=== PATIENT | female | born 1985 | race African-American/Black ===

== ENCOUNTER 2021-01-10 13:22 | Emergency (ER) | payer OTHER, SELFPAY ==
--- NOTE | ~2021-01-10 | CT_ITS ---
EXAMINATION: CT abdomen pelvis w con EXAM DATE: 01/10/2021 15:14 INDICATION: Right lower quadrant pain. TECHNIQUE: Spiral CT of the abdomen and pelvis was performed following intravenous injection of 100 m L Omnipaque 350. Axial, coronal and sagittal images of the abdomen and pelvis were reviewed. The do se-length product (DLP) for this examination was 318.02 mGy-cm. The exposure was tailored according to patient size (auto mA exposure control), and iterative reconstruction (ASIR) was used as additiona l dose reduction technique. There is no prior study for comparison. FINDINGS: The liver, spleen, adrenal glands and pancreas are unremarkable. Gallbladder is unremarkab le. No biliary obstruction. Portal and splenic veins are patent. Kidneys enhance symmetrically. T here is no hydronephrosis. Calcifications in the pelvis are believed to be phleboliths. There is IU D which appears to be centrally located within the endometrium, expected position. The bladder is un remarkable. There is no retroperitoneal or pelvic lymphadenopathy. Small umbilical and periumbilic al fat-containing hernias. The appendix is normal. The stomach and small bowel are unremarkable. There is expected amount of c olonic stool. No free intraperitoneal gas. The heart is normal in size. There are no pericardial or pleural effusions. The lung bases are unremarkable. The bones are unremarkable. IMPRESSION: 1. No acute intra-abdominal findings. Reviewed, dictated and finalized at location A.
[2021-01-10 13:48] VITALS: BP 139/89; PULSE 85; RESP 17; TEMP 36.3; O2SAT 100
--- NOTE | 2021-01-10 13:52 | ECG_ITS ---
Measurements Intervals [place] Rate: 90 P: 55 ID: 144 QRS: 48 QRSD: 81 T: 45 QT: 349 QTc: 427 Interpretive Statements SINUS RHYTHM WITH SINUS ARRHYTHMIA NORMAL ECG Electronically Signed On 01-10-2021 14:54:43 CDT by Bernabe Sue D.O.
[2021-01-10 14:03] LABS: Basophils Absolute Auto 0.1 K/mm3 (0.0-0.1); Eosinophils Absolute Auto 0.4 K/mm3 (0-0.3); Eosinophils Percent Auto 8.4 % (0-4.4); Hematocrit 38.8 % (37.0-47.0); Hemoglobin 12.6 g/dL (12.0-15.0); Immature Granulocyte Absolute 0.02 K/mm3 (0.00-0.031); Immature Granulocyte Percent A 0.4 % (0-0.5); Lymphocytes Absolute Auto 1.59 K/mm3 (0.9-3.2); Lymphocytes Percent Auto 30.5 % (18.3-44.2); Mean Corpuscular HGB Conc 32.5 g/dl (32-36); Mean Corpuscular Hemoglobin 30.6 pg (26-34); Mean Corpuscular Volume 94.2 fl (80-100); Monocytes Absolute Auto 0.5 K/mm3 (0.1-0.6); Monocytes Percent Auto 8.6 % (2.6-8.5); Neutrophils Absolute Auto 2.7 K/mm3 (1.3-6.7); Neutrophils Percent Auto 51.1 % (45.5-73.1); Platelet Count Result 247 k/mm3 (150-375); Red Blood Count 4.12 M/mm3 (4.2-5.4); Red Cell Distribution Width 12.9 % (11.5-14.5); White Blood Count 5.2 K/mm3 (4.5-10.0)
[2021-01-10 14:10] LABS: Alanine Aminotransferase 13 U/L (4-35); Albumin Level 4.4 g/dL (3.5-5.1); Alkaline Phosphatase 42 U/L (38-126); Anion Gap 5 mmol/L (8-16); Aspartate Amino Transferase 26 U/L (14-36); Bilirubin,Total 0.1 mg/dL (0.2-1.3); Blood Urea Nitrogen 17 mg/dL (7-17); Calcium 9.2 mg/dL (8.4-10.2); Carbon Dioxide 29 mmol/L (22-30); Chloride 106 mmol/L (98-107); Estimated CRCL calculation 77 ml/min; Estimated Glomerular Filt Rate > 60; Glucose 93 mg/dL (65-105); Lipase 124 U/L (23-300); Potassium 4.1 mmol/L (3.4-5.0); Sodium 140 mmol/L (137-145)
--- NOTE | 2021-01-10 14:33 | ED.ABDPAIN ---
HPI - Abdominal Pain General Chief Complaint: Abdominal Pain Stated Complaint: Dr sent in Time Seen by Provider: 01/10/21 14:22 Source: patient Mode of arrival: ambulatory Limitations: no limitations History of Present Illness HPI narrative: Epigastric pain intermittently for the past several days. Feels like squeezing. Radiates into chest. Lasts for variable lengths of time. Nothing seems to make it better or worse. Tried ibuprofen without relief. She also has been having daiily headaches. Moderate severity. Feels like previous migraines. Associated with mild nausea. Related Data Home Medications Medication Instructions Recorded Confirmed lisinopril 01/10/21 Allergies Allergy/AdvReac Type Severity Reaction Status Date / Time morphine Allergy Mild Unknown Unverified 01/10/21 14:45 Review of Systems Review of Systems: All systems reviewed & are unremarkable except as noted in HPI and below Constitutional: Constitutional: Denies chills, Denies fever(s) and Denies weakness Eyes: Eyes: Reports no additional eye complaints ENT: Reports system reviewed and no additional complaints, except as documented Cardiovascular: Cardiovascular: Denies chest pain Respiratory: Respiratory: Denies dyspnea Gastrointestinal: Gastrointestinal: Reports as per HPI Genitourinary: Genitourinary: Denies hematuria and Denies dysuria Musculoskeletal: Musculoskeletal: Denies back pain Neurologic: Reports system reviewed and no additional complaints, except as documented [facility] Past Medical History Medical History (Updated 01/10/21 @ 16:12 by Jose Chino MD) HTN (hypertension) Migraine Social History Social History Gender identity (if verbalized by the patient): Female Exam Const: General: healthy appearing, no acute distress and alert Orientation/consciousness: patient oriented x3 HENMT: Head: normal to inspection Neck: Neck: normal visual inspection Resp: Effort & Inspection: normal respiratory effort Auscultation: clear to auscultation bilaterally, no rales, no rhonchi and no wheezes Cardio: Jugular venous distension: no JVD Rate: regular rate Rhythm: regular rhythm Heart sounds: no murmurs GI: Inspection: non-distended GI Palp: Yes Soft to palpation, Yes Tenderness to palpation present (GI) (epigastric), No Guarding due to palpation present (GI) and No Rebound tenderness present Skin: General skin exam: normal color Neuro: General: patient oriented x3, moves all extremities, no focal motor deficits and CN's II-XI intact bilaterally Speech: normal speech Gait exam (Neuro): Normal gait present Extrem: General: normal to inspection and no edema Psych: Appearance: well kempt Affect: normal affect Course Vital Signs Vital signs: Vital Signs Temperature 36.3 C L 01/10/21 13:48 Pulse Rate 85 01/10/21 13:48 Respiratory Rate 17 01/10/21 13:48 Blood Pressure 139/89 01/10/21 13:48 Pulse Oximetry 100 01/10/21 13:48 Temperature 36.3 C L 01/10/21 13:48 Pulse Rate 85 01/10/21 13:48 Respiratory Rate 17 01/10/21 13:48 Blood Pressure 139/89 01/10/21 13:48 Pulse Oximetry 100 01/10/21 13:48 MDM - Abdominal Pain Differential Diagnosis Differential diagnosis: Likely constipation, pancreatitis and other (cholecystitis, PUD, gastritis) Medical Records Attestation: I reviewed the patient's medical records. Lab Data Attestation: I reviewed the patient's lab results. Result diagrams: 01/10/21 13:53 01/10/21 13:53 Labs: Lab Results 01/10/21 01/10/21 01/10/21 Range/Units 13:53 13:53 15:05 WBC 5.2 (4.5-10.0) K/mm3 RBC 4.12 L (4.2-5.4) M/mm3 Hgb 12.6 (12.0-15.0) g/dL Hct 38.8 (37.0-47.0) % MCV 94.2 (80-100) fl MCH 30.6 (26-34) pg MCHC 32.5 (32-36) g/dl RDW 12.9 (11.5-14.5) % Plt Count 247 (150-375) k/mm3 MPV 10.0 (7.4-10.4) fl Immature Gran % (Auto) 0.4 (0-0.5) % Neut % (Auto)
--- NOTE | 2021-01-10 15:05 | PC.NURSE ---
Pt to CT at this time.
[2021-01-10 15:17] LABS: Add Urine Microscopic? YES; Appearance Urine Clear (Clear); Bilirubin Urine Negative (Negative); Blood Urine Negative (Negative); Color Urine Yellow (Yellow); Glucose Urine UA Negative (Negative); Ketones Urine Negative (Negative); Leukocyte Esterase Ur Negative LEU/UL (Negative); Mucus Urine Few /lpf; Nitrate Urine Negative (Negative); Protein Urine 1+ mg/dL (Negative); RBC Urine 0-2 /hpf (0-2); Squamous Epithelial Cell Urine Few /hpf (Few); Urobilinogen Urine Negative mg/dL (<2.0); WBC Urine 0-3 /hpf
[2021-01-10] MEDS: SODIUM CHLORIDE 0.9% IV 1,000 ML 999 ML IV CONT (15:27)
[2021-01-10] MEDS: METOCLOPRAMIDE HCL INJ 10 MG/2 ML VIAL IV PUSH (15:28)
[2021-01-10 15:34] VITALS: BP 111/59; O2SAT 99
[2021-01-10 16:15] VITALS: BP 112/43; PULSE 96; RESP 16; O2SAT 99
== END 2021-01-10 16:15 | disposition home or self-care (01) ==
PROVIDERS: Emergency Provider Emergency Medicine
DX: R10.13 Epigastric pain (principal); G43.909 Migraine, unspecified, not intractable, without status migrainosus; I10 Essential (primary) hypertension
CPT/HCPCS: 36415; 74177; 80053; 81001; 81025; 83690; 85025; 93005; 96365; 96375; 99284; J0131; J2765; J7030; Q9967

== ENCOUNTER 2021-10-13 20:08 | Emergency (ER) | payer OTHER, SELFPAY ==
--- NOTE | ~2021-10-13 | XR_ITS ---
XR chest 2V DATE: 10/13/2021 21:30 INDICATION: Midsternal chest pain radiating to left side. Shortness of breath for 1.5 weeks. TECHNIQUE: PA and lateral views COMPARISON: 07/30/2015 2 view chest FINDINGS: Normal heart size. No hilar or mediastinal enlargement. No pulmonary infiltrate or consolid ation, pleural effusion or pulmonary vascular congestion or pneumothorax. IMPRESSION: No active cardiopulmonary disease Reviewed, dictated and finalized at location A. ICAL TECH
--- NOTE | 2021-10-13 21:00 | ECG_ITS ---
Measurements Intervals [place] Rate: 72 P: 140 AR: 156 QRS: 143 QRSD: 84 T: 149 QT: 354 QTc: 388 Interpretive Statements SINUS OR ECTOPIC ATRIAL RHYTHM LIMB LEAD REVERSAL ATYPICAL ECG Electronically Signed On 10-14-2021 7:51:20 [employer] by Bernabe Sue D.O.
[2021-10-13 21:02] VITALS: BP 128/81; PULSE 74; RESP 18; TEMP 36.8; O2SAT 100
[2021-10-13 23:22] LABS: Basophils Percent Auto 0.7 % (0.2-1.2); Eosinophils Absolute Auto 0.3 K/mm3 (0-0.3); Eosinophils Percent Auto 5.4 % (0-4.4); Hematocrit 36.3 % (37.0-47.0); Hemoglobin 12.1 g/dL (12.0-15.0); Immature Granulocyte Absolute 0.01 K/mm3 (0.00-0.031); Immature Granulocyte Percent A 0.2 % (0-0.5); Lymphocytes Absolute Auto 1.96 K/mm3 (0.9-3.2); Lymphocytes Percent Auto 36.5 % (18.3-44.2); Mean Corpuscular HGB Conc 33.3 g/dl (32-36); Mean Corpuscular Hemoglobin 31.6 pg (26-34); Mean Corpuscular Volume 94.8 fl (80-100); Mean Platelet Volume 10.4 fl (7.4-10.4); Monocytes Absolute Auto 0.7 K/mm3 (0.1-0.6); Monocytes Percent Auto 12.7 % (2.6-8.5); Neutrophils Absolute Auto 2.4 K/mm3 (1.3-6.7); Neutrophils Percent Auto 44.5 % (45.5-73.1); Platelet Count Result 237 k/mm3 (150-375); Red Blood Count 3.83 M/mm3 (4.2-5.4); Red Cell Distribution Width 12.4 % (11.5-14.5); White Blood Count 5.4 K/mm3 (4.5-10.0)
[2021-10-13 23:33] LABS: Prothrombin Time 13.3 Seconds (11.1-14.7)
[2021-10-13 23:34] LABS: Partial Thromboplastin Time 28.6 SECONDS (22.3-36.8)
[2021-10-13 23:37] LABS: Alanine Aminotransferase 14 U/L (4-35); Albumin Level 4.4 g/dL (3.5-5.1); Alkaline Phosphatase 41 U/L (38-126); Anion Gap 3 mmol/L (8-16); Aspartate Amino Transferase 23 U/L (14-36); Bilirubin,Total 0.5 mg/dL (0.2-1.3); Blood Urea Nitrogen 13 mg/dL (7-17); Calcium 9.4 mg/dL (8.4-10.2); Carbon Dioxide 28 mmol/L (22-30); Chloride 106 mmol/L (98-107); Estimated CRCL calculation 70 ml/min; Estimated Glomerular Filt Rate > 60; Glucose 105 mg/dL (65-110); Lipase 96 U/L (23-300); Potassium 4.3 mmol/L (3.4-5.0); Sodium 137 mmol/L (137-145)
[2021-10-13 23:48] LABS: Troponin I < 0.012 ng/mL (0.000-0.034)
[2021-10-14 00:55] LABS: Troponin I < 0.012 ng/mL (0.000-0.034)
[2021-10-14 03:34] LABS: Troponin I < 0.012 ng/mL (0.000-0.034)
[2021-10-14] MEDS: KETOROLAC 30 MG/ML VIAL (*BKC) IM (04:27)
[2021-10-14] MEDS: BELLADONNA ALK/PHENOB ELIX 10 ML, MAG HYDROX/ALUMINUM HYD/SIMETH 30 ML, LIDOCAINE HCL 2... PO (04:27)
--- NOTE | 2021-10-14 04:40 | ED.GENADULT ---
HPI - General Adult General Chief complaint: Chest Pain Stated complaint: chest pain Time Seen by Provider: 10/14/21 04:00 History of Present Illness HPI narrative: Patient 35-year-old female presents the emergency department with chief complaint of chest discomfort. Patient states that for the last week and a half she has been having discomfort in her chest. Patient states it is more of a sharp type pain states is worse with inspiration and worse with movement. Patient reports that she has had no cough no trauma repeat denies history of cardiac disease reports that her only risk factor is hypertension. Patient reports she is Dr. Primary care physician who has her scheduled for stress test in the next week. Related Data Home Medications Medication Instructions Recorded Confirmed lisinopril 01/10/21 Allergies Allergy/AdvReac Type Severity Reaction Status Date / Time morphine Allergy Mild Unknown Verified 10/14/21 04:25 Review of Systems Review of Systems: A 10 system review of systems was completed on the patient and is negative except for what is stated in the HPI. Nursing and ancillary documentation was reviewed. [facility] Past Medical History Medical History HTN (hypertension) Migraine Social History Social History Gender identity (if verbalized by the patient): Female Exam Narrative: GENERAL: Well-appearing, well-nourished, and in no acute distress. HEAD: Normocephalic, atraumatic. EYES: PERRLA and EOMI. ENT: Nares clear, no rhinorrhea or epistaxis. Mucous membranes moist. NECK: Supple. CHEST: Clear to auscultation. No respiratory distress. HEART: Regular rate and rhythm. No murmur heard. Normal peripheral pulses. ABDOMEN: Soft, nontender, nondistended, normal active bowel sounds. EXTREMITIES: Normal range of motion. No edema. SKIN: Warm, dry, no rash. NEURO: No focal deficits. Alert and oriented x3. PSYCH: Normal mood and affect. Course Course Emergency Course: EKG is sinus rhythm rate of [address] elevation or ST depression Vital Signs Vital signs: Vital Signs Temperature 36.8 C 10/13/21 21:02 Pulse Rate 74 10/13/21 21:02 Respiratory Rate 18 10/13/21 21:02 Blood Pressure 128/81 10/13/21 21:02 Pulse Oximetry 100 10/13/21 21:02 Temperature 36.8 C 10/13/21 21:02 Pulse Rate 74 10/13/21 21:02 Respiratory Rate 18 10/13/21 21:02 Blood Pressure 128/81 10/13/21 21:02 Pulse Oximetry 100 10/13/21 21:02 Medical Decision Making Vital Signs Vital Signs: Vital Signs Temperature 36.8 C 10/13/21 21:02 Pulse Rate 74 10/13/21 21:02 Respiratory Rate 18 10/13/21 21:02 Blood Pressure 128/81 10/13/21 21:02 Pulse Oximetry 100 10/13/21 21:02 Temperature 36.8 C 10/13/21 21:02 Pulse Rate 74 10/13/21 21:02 Respiratory Rate 18 10/13/21 21:02 Blood Pressure 128/81 10/13/21 21:02 Pulse Oximetry 100 10/13/21 21:02 Lab Data Result diagrams: 10/13/21 22:58 10/13/21 22:58 Labs: Lab Results 10/13/21 10/13/21 10/13/21 Range/Units 22:58 22:58 22:58 WBC 5.4 (4.5-10.0) K/mm3 RBC 3.83 L (4.2-5.4) M/mm3 Hgb 12.1 (12.0-15.0) g/dL Hct 36.3 L (37.0-47.0) % MCV 94.8 (80-100) fl MCH 31.6 (26-34) pg MCHC 33.3 (32-36) g/dl RDW 12.4 (11.5-14.5) % Plt Count 237 (150-375) k/mm3 MPV 10.4 (7.4-10.4) fl Immature Gran % (Auto) 0.2 (0-0.5) % Neut % (Auto) 44.5 L (45.5-73.1) % Lymph % (Auto) 36.5 (18.3-44.2) % Dane % (Auto) 12.7 H (2.6-8.5) % Eos % (Auto) 5.4 H (0-4.4) % Baso % (Auto) 0.7 (0.2-1.2) % Lymph # (Auto) 1.96 (0.9-3.2) K/mm3 Dane # (Auto) 0.7 H (0.1-0.6) K/mm3 Eos # (Auto) 0.3 (0-0.3) K/mm3 Baso # (Auto) 0.0 (0.0-0.1) K/mm3 Abs Immat Gran (auto) 0.01 (0.00-0.031) K/mm3 Absolute N
[2021-10-14 05:33] VITALS: BP 116/75; PULSE 71; RESP 16; O2SAT 100
== END 2021-10-14 05:37 | disposition home or self-care (01) ==
PROVIDERS: Emergency Provider Emergency Medicine; PCP Internal Medicine
DX: R07.89 Other chest pain (principal); I10 Essential (primary) hypertension
CPT/HCPCS: 36415; 71046; 80053; 83690; 84484; 85025; 85610; 85730; 93005; 96372; 99284; A9270; J1885

== ENCOUNTER 2021-10-17 10:09 | Outpatient (CLI) | payer OTHER, SELFPAY ==
--- NOTE | 2021-10-17 11:00 | EST_ITS ---
Patient Info Name: Rosi Power Age: 35 years : 1985 Gender: Female Ht: 62 in Wt: 154 lbs BSA: 1.77 m2 HR: 76 bpm BP: 127 / 76 mmHg Heart Rhythm: Sinus Rhythm Exam Date: 10/17/2021 10:33 AM Exam Location: [facility] Stress Patient Status: Outpatient Admit Date: 10/17/2021 Staff Ordering Physician: NancieLolis MD Attending Provider: NancieLolis MD Exercise Technologist: Loli Rodriguez CT Exercise Physician: Beau Melton MD Exam Type: CA stress test treadmill Study Info Indications R07.9 - Chest pain, unspecified A treadmill exercise stress test was performed. Summary 1. Treadmill stress test negative for ischemia by EKG criteria at 100% maximum age predicted heart rate. Torre treadmill score about 8.3 which falls under low risk category. Protocol: [facility] Stress ECG Details Stage: REST Duration (min): 1 min : 16 sec Speed (mph): 0.0 Grade (%): 0 HR (bpm): 80 SBP (mmHg): 127 DBP (mmHg): 76 METS: --- Stage: REST Duration (min): 20 min : 45 sec Speed (mph): 0.0 Grade (%): 0 HR (bpm): 68 SBP (mmHg): 127 DBP (mmHg): 76 METS: --- Stage: STAGE 1 Duration (min): 1 min : 0 sec Speed (mph): 1.7 Grade (%): 10 HR (bpm): 114 SBP (mmHg): 127 DBP (mmHg): 76 METS: --- Stage: STAGE 1 Duration (min): 2 min : 0 sec Speed (mph): 1.7 Grade (%): 10 HR (bpm): 124 SBP (mmHg): 127 DBP (mmHg): 76 METS: --- Stage: STAGE 1 Duration (min): 3 min : 0 sec Speed (mph): 1.7 Grade (%): 10 HR (bpm): 126 SBP (mmHg): 144 DBP (mmHg): 67 METS: --- Stage: STAGE 2 Duration (min): 1 min : 0 sec Speed (mph): 2.5 Grade (%): 12 HR (bpm): 141 SBP (mmHg): 144 DBP (mmHg): 67 METS: --- Stage: STAGE 2 Duration (min): 2 min : 0 sec Speed (mph): 2.5 Grade (%): 12 HR (bpm): 150 SBP (mmHg): 142 DBP (mmHg): 67 METS: --- Stage: STAGE 2 Duration (min): 3 min : 0 sec Speed (mph): 2.5 Grade (%): 12 HR (bpm): 159 SBP (mmHg): 142 DBP (mmHg): 67 METS: --- Stage: STAGE 3 Duration (min): 1 min : 0 sec Speed (mph): 3.4 Grade (%): 14 HR (bpm): 173 SBP (mmHg): 192 DBP (mmHg): 59 METS: --- Stage: STAGE 3 Duration (min): 2 min : 0 sec Speed (mph): 3.4 Grade (%): 14 HR (bpm): 180 SBP (mmHg): 192 DBP (mmHg): 59 METS: --- Stage: STAGE 3 Duration (min): 2 min : 34 sec Speed (mph): 3.4 Grade (%): 14 HR (bpm): 184 SBP (mmHg): 192 DBP (mmHg): 59 METS: --- Stage: RECOVERY Duration (min): 0 min : 25 sec Speed (mph): 0.0 Grade (%): 0 HR (bpm): 176 SBP (mmHg): 171 DBP (mmHg): 57 METS: --- Stage: RECOVERY Duration (min): 1 min : 25 sec Speed (mph): 0.0 Grade (%): 0 HR (bpm): 116 SBP (mmHg): 171 DBP (mmH
== END 2021-10-17 10:10 | disposition home or self-care (01) ==
PROVIDERS: PCP Internal Medicine; Visit Provider Internal Medicine
DX: R07.9 Chest pain, unspecified (principal)
CPT/HCPCS: 93017

== ENCOUNTER 2021-12-08 06:40 | Emergency (ER) | payer OTHER, SELFPAY ==
--- NOTE | ~2021-12-08 | XR_ITS ---
EXAMINATION: XR chest 2V DATE: 12/08/2021 07:34 INDICATION: Chest pain radiating to the left arm TECHNIQUE: PA and lateral views of the chest are obtained. COMPARISON: 10/13/2021 FINDINGS: The lungs are free of acute opacities. There is no pleural effusion or pneumothorax. The ca rdiomediastinal silhouette is normal. The visualized bones and soft tissues are unremarkable. IMPRESSION: 1. No acute cardiopulmonary abnormality. Reviewed, dictated and finalized at location B.
--- NOTE | 2021-12-08 06:42 | ECG_ITS ---
Measurements Intervals [place] Rate: 73 P: 61 LA: 168 QRS: 46 QRSD: 84 T: 38 QT: 378 QTc: 418 Interpretive Statements SINUS RHYTHM WITH SINUS ARRHYTHMIA NORMAL ECG Electronically Signed On 12-08-2021 16:19:00 CDT by Melo Zheng M.D.
[2021-12-08 06:47] VITALS: BP 123/80; PULSE 85; RESP 13; TEMP 36.5; O2SAT 100
[2021-12-08 07:17] VITALS: O2SAT 100
[2021-12-08 07:19] LABS: Eosinophils Absolute Auto 0.2 K/mm3 (0-0.3); Eosinophils Percent Auto 4.6 % (0-4.4); Hematocrit 39.3 % (37.0-47.0); Hemoglobin 13.1 g/dL (12.0-15.0); Immature Granulocyte Absolute 0.01 K/mm3 (0.00-0.031); Immature Granulocyte Percent A 0.2 % (0-0.5); Lymphocytes Percent Auto 36.7 % (18.3-44.2); Mean Corpuscular HGB Conc 33.3 g/dl (32-36); Mean Corpuscular Hemoglobin 31.5 pg (26-34); Mean Corpuscular Volume 94.5 fl (80-100); Mean Platelet Volume 10.4 fl (7.4-10.4); Monocytes Absolute Auto 0.4 K/mm3 (0.1-0.6); Monocytes Percent Auto 10.8 % (2.6-8.5); Neutrophils Absolute Auto 1.9 K/mm3 (1.3-6.7); Neutrophils Percent Auto 46.7 % (45.5-73.1); Platelet Count Result 211 k/mm3 (150-375); Red Blood Count 4.16 M/mm3 (4.2-5.4); Red Cell Distribution Width 12.2 % (11.5-14.5); White Blood Count 4.1 K/mm3 (4.5-10.0)
[2021-12-08] MEDS: KETOROLAC 30 MG/ML VIAL (*BKC) IV PUSH (07:23)
[2021-12-08 07:24] LABS: Alanine Aminotransferase 15 U/L (4-35); Albumin Level 4.3 g/dL (3.5-5.1); Alkaline Phosphatase 43 U/L (38-126); Anion Gap 4 mmol/L (8-16); Aspartate Amino Transferase 26 U/L (14-36); Bilirubin,Total 0.3 mg/dL (0.2-1.3); Blood Urea Nitrogen 14 mg/dL (7-17); Carbon Dioxide 29 mmol/L (22-30); Chloride 104 mmol/L (98-107); Estimated CRCL calculation 87 ml/min; Estimated Glomerular Filt Rate > 60; Glucose 92 mg/dL (65-110); Lipase 95 U/L (23-300); Potassium 4.4 mmol/L (3.4-5.0); Sodium 137 mmol/L (137-145)
[2021-12-08 07:25] LABS: Partial Thromboplastin Time 27.5 SECONDS (22.3-36.8)
[2021-12-08 07:29] LABS: D Dimer 0.31 ug/mL (<0.48)
--- NOTE | 2021-12-08 07:29 | PC.NURSE ---
pt to Xray at this time.
--- NOTE | 2021-12-08 07:34 | ED.CHESTPAIN ---
HPI - Chest Pain General Chief Complaint: Chest Pain Stated Complaint: chest pain Time Seen by Provider: 12/08/21 07:01 History of Present Illness HPI narrative: Patient is a 35-year-old female who presents ER with chest pain. Central and radiates towards her shoulder and then down her left chest wall. Sharp in character. Worse with movement and persistent. Reports pain is worse with moving. She has tried no pain medications. Cannot report any alleviating factors. She reports it is associated with feeling of dizziness because when she got up out of bed she had some unsteadiness that she experienced that improved when she sat down in a chair. No racing the heart. No history of heart disease and no family history of heart disease at a young age. Patient reports that she underwent a stress test in the last 6 weeks that was negative. Patient denies any leg swelling. No hemoptysis. No pain with deep breath. Related Data Home Medications Medication Instructions Recorded Confirmed lisinopril 01/10/21 Allergies Allergy/AdvReac Type Severity Reaction Status Date / Time morphine Allergy Mild Unknown Verified 12/08/21 07:18 Review of Systems Review of Systems: All systems reviewed & are unremarkable except as noted in HPI and below Constitutional: Constitutional: Denies chills, Denies fever(s) and Denies weakness ENT: Denies nasal congestion and Denies sore throat Cardiovascular: Cardiovascular: Reports chest pain, Denies rapid heart rate and Reports radiating jaw, neck or arm pain Respiratory: Respiratory: Denies cough, Denies dyspnea and Denies wheezing Gastrointestinal: Gastrointestinal: Denies abdominal pain, Denies diarrhea, Denies nausea and Denies vomiting Neurologic: Reports dizziness, Denies focal weakness and Denies numbness PMFSH Past Medical History Medical History (Updated 12/08/21 @ 10:26 by Yandel Anguiano MD) HTN (hypertension) Migraine Surgical History Surgical History (Updated 12/08/21 @ 07:37 by Yandel Anguiano MD) No pertinent past surgical history Social History Social History Gender identity (if verbalized by the patient): Female Exam Narrative: GENERAL: Well-appearing, well-nourished, and in no acute distress. HEAD: Normocephalic, atraumatic. ENT: Mucous membranes moist. CHEST: Clear to auscultation. No respiratory distress. HEART: Regular rate and rhythm. Normal peripheral pulses. ABDOMEN: Soft, nontender, nondistended. EXTREMITIES: Normal range of motion. No edema. SKIN: Warm, dry, no rash. NEURO: Alert and oriented x3. PSYCH: Normal mood and affect. Course Course Emergency Course: Unremarkable evaluation including 2 - troponins and a normal D-dimer. No evidence of infection. No arrhythmia on monitor. Recommend follow-up with PCP. Recommend scheduled anti-inflammatories for pain control. Vital Signs Vital signs: Vital Signs Temperature 97.7 F 12/08/21 06:47 Pulse Rate 85 12/08/21 06:47 Respiratory Rate 13 12/08/21 06:47 Blood Pressure 123/80 12/08/21 06:47 Pulse Oximetry 100 12/08/21 06:47 Temperature 97.7 F 12/08/21 06:47 Pulse Rate 78 12/08/21 09:37 Respiratory Rate 16 12/08/21 09:37 Blood Pressure 123/67 12/08/21 09:37 Pulse Oximetry 100 12/08/21 09:37 MDM - Chest Pain Lab Data Result diagrams: 12/08/21 07:06 12/08/21 07:06 Labs: Lab Results 12/08/21 12/08/21 12/08/21 Range/Units 07:06 07:06 07:06 WBC 4.1 L (4.5-10.0) K/mm3 RBC 4.16 L (4.2-5.4) M/mm3 Hgb 13.1 (12.0-15.0) g/dL Hct 39.3 (37.0-47.0) % MCV 94.5 (80-100) fl MCH 31.5 (26-34) pg MCHC 33.3 (32-36) g/dl RDW 12.2 (11.5-14.5) % Plt Count 211 (150-375) k/mm3 MPV 10.4 (7.4-10.4) fl Immature Gran % (Auto) 0.2 (0-0.5) % Neut % (Auto) 46.7 (45.5-73.1) % Lymph % (Auto) 36.7 (18.3-44.2) % M
[2021-12-08 07:35] LABS: Troponin I < 0.012 ng/mL (0.000-0.034)
[2021-12-08 07:58] VITALS: BP 138/83; PULSE 69; RESP 18; O2SAT 100
[2021-12-08 09:37] VITALS: BP 123/67; PULSE 78; RESP 16; O2SAT 100
[2021-12-08 10:17] LABS: Troponin I < 0.012 ng/mL (0.000-0.034)
--- NOTE | 2021-12-08 10:40 | PC.NURSE ---
Dr. Anguiano spoke w/ patient about discharge plan. when walking into discharge pt, pt requesting that we need to do further testing to figure out why she still has pain. Dr. Anguiano made aware of situation and states he already spoke with her and stated we ruled out any emergent issues at this time and that pt needs to follow up w/ her primary care provider. pt now requesting to be seen by another provider and demanding more test to be done. Charge nurse and EDP made aware of situation.
[2021-12-08 10:44] VITALS: BP 127/80; PULSE 83; RESP 18; O2SAT 100
--- NOTE | 2021-12-08 10:55 | PC.NURSE ---
Karolyn, RN made this RN aware patient was refusing to be discharged. Dr. Anguiano also aware and had been to bedside to answer any questions might have had. I then went to patient bedside and tried to explain that all of her testing was negative and we had ruled any life threats out. Patient did not allow this RN to continue speaking and asked for a number to call and complain. Pt stating you guys didn't do your job. you couldn't figure out what's going on with me. At that time I walked out of room and grabbed Tara's business card and returned to room. Patient snatched business card out of this RN hand and began to call number on her cell phone. Pt asking this RN if she was here now to which I replied I am unsure of her hours. I asked pt if I could do anything else for her and she stated no. not unless you can figure out what's wrong with me.
--- NOTE | 2021-12-08 11:04 | PC.NURSE ---
spoke w/ EDP again. He states there is nothing more we can do and that he already spoke w/ her that we had ruled out anything needing emergent care and that she needs to follow up w/ her primary care provider. This RN and charge nurse to room and explained that we ruled out anything emergent. pt told that we did blood work, EKG, and chest Xray which all came back normal. pt requesting someone she can call. waiter and cashier gave pt phone number for patient advocate. pt states I don't know why I am being treated this way. [facility] must have a race issue or something. pt made aware that [facility] and their staff do not discriminate and provide equal care to all of our patients. IV was removed w/ catheter intact. Tried to attempt to go over discharge paperwork w/ pt, but pt did not want to listen. discharge paperwork was not signed. pt ambulated with family member to waiting area in stable condition without any difficulties w/ belongings and discharge paperwork.
[2021-12-08 11:29] VITALS: BP 127/80; PULSE 79; RESP 16; O2SAT 100
== END 2021-12-08 11:34 | disposition home or self-care (01) ==
PROVIDERS: Emergency Medicine; Emergency Provider Emergency Medicine; PCP Internal Medicine
DX: R07.89 Other chest pain (principal); I10 Essential (primary) hypertension
CPT/HCPCS: 36415; 71046; 80053; 83690; 84484; 85025; 85380; 85610; 85730; 93005; 96374; 99284; J1885

== ENCOUNTER 2023-05-15 07:57 | Outpatient (CLI) | payer OTHER, SELFPAY ==
--- NOTE | ~2023-05-15 | MM_ITS ---
EXAMINATION: MM screening zoya BI w camilla HISTORY: Screening mammogram TECHNIQUE: Craniocaudal and mediolateral oblique 3-D tomosynthesis images were obtained and synthetic 2-D images were generated. CAD analysis was submitted and interpreted. COMPARISON: No prior mammogram is available for comparison at this institution. BREAST PARENCHYMAL COMPOSITION:The breasts are extremely dense, which lowers the sensitivity of mammo graphy. FINDINGS: No suspicious mass, calcification, or architectural distortion are identified in either mayelin ast to suggest malignancy. IMPRESSION: No mammographic evidence of malignancy. Recommend routine screening mammography in one year. BI-RADS Category 1: Negative Reviewed, dictated and finalized at location .
== END 2023-05-15 07:58 | disposition home or self-care (01) ==
LOC: CHSIMG 07:58
PROVIDERS: PCP Internal Medicine; Visit Provider Obstetrics & Gynecology
DX: Z12.31 Encounter for screening mammogram for malignant neoplasm of breast (principal)
CPT/HCPCS: 77063; 77067

== ENCOUNTER 2024-01-14 07:44 | Emergency (ER) | payer OTHER, SELFPAY ==
--- NOTE | ~2024-01-14 | XR_ITS ---
EXAMINATION: XR chest 2V DATE: 01/14/2024 08:37 INDICATION: Chest pain. Shortness of breath. Dizziness. TECHNIQUE: Frontal and lateral views of the chest were obtained. COMPARISON: Chest 2 views 12/08/2021, CT abdomen and pelvis 01/10/2021 FINDINGS: There is no pneumonia, pleural effusion, or pneumothorax. The heart size is normal. IMPRESSION: 1. No acute cardiopulmonary disease. Reviewed, dictated and finalized at location A.
[2024-01-14 07:48] VITALS: PULSE 98; RESP 25; TEMP 37.2; O2SAT 100
[2024-01-14 07:54] VITALS: PULSE 89
--- NOTE | 2024-01-14 07:55 | ECG_ITS ---
SEE SCANNED COPY FOR CONFIRMED REPORT MTDD
--- NOTE | 2024-01-14 08:00 | ED.CHESTPAIN ---
HPI - Chest Pain General Chief Complaint: Chest Pain Stated Complaint: SOB/chest pain Time Seen by Provider: 01/14/24 08:00 Source: patient Mode of arrival: EMS Limitations: no limitations History of Present Illness HPI narrative: Patient presents with chest pain. She states when she woke up she had a headache. She took her lisinopril which is prescribed for her hypertension and checked her blood pressure and it was 125/80 at home. Her headache seemed to be getting worse and her blood pressure at home when she recheck was 148/88. She had her coffee and was driving on the highway at an estimated speed of 65 mph she began to feel hot and dizzy and developed chest pain. She denies it particularly radiating however she also has associated jaw pain. She states she has had chest pain before for which she presented to the emergency department previously and was told she was having a panic attack. She did not believe this was the case and has had no interval symptoms. Does not follow with a yard pilot. She was shortness of breath initially but this resolved. She denies any cough or fevers. Does not smoke. Diagnosis of hypercholesterolemia. Family history of myocardial infarction before age 65. No recent surgery or trauma. No prior PE or DVT. No hormone use. Related Data Home Medications Medication Instructions Recorded Confirmed lisinopril 20 1 tablet PO 12/05/23 12/05/23 mg-hydrochlorothiazide 12.5 mg tablet Allergies Allergy/AdvReac Type Severity Reaction Status Date / Time morphine Allergy Mild Unknown Verified 01/14/24 07:56 [facility] Past Medical History Medical History HTN (hypertension) Migraine Sciatic nerve disease Screening mammogram, encounter for Surgical History Surgical History History of hysteroscopy (03/09/21) hscope removal of IUD device/ Endometrial Ablation/ D&C/ Laparoscopic bilateral salpingectomy No pertinent past surgical history Family History Family History Other Breast cancer maternal great grandmother/ maternal aunt / Social History Social History Smoking status: Never smoker Alcohol intake: current Drinks per week: 3 Substance use: current Substance use type: marijuana Other substance usage details: 1-2 x in 6 months Lack of Transportation: No Lack of Food: Never True Current Housing: I Have Housing Concerned About Future Housing: No Difficulty Paying Gas/Electric Bills: No Difficulty Paying for Meds: No Currently Unemployed: No Education: Master's Degree or Higher Difficulty w/ Childcare or Family Care: No Living arrangements: other Additional living arrangements comments: Occupation/Education: occupation 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 HEAD: Normocephalic, atraumatic. EYES: Non injected, non icteric ENT: Nares clear, no rhinorrhea or epistaxis. NECK: Supple. CHEST: Speaking in full sentences. No respiratory distress. Tachynpnea has resolvd at the time of my assessment HEART: Regular rate and rhythm. ABDOMEN: Soft, nondistended. EXTREMITIES: Normal range of motion. No lower extremity edema. SKIN: Warm, dry, no rash. NEURO: No focal deficits. Alert and oriented x3. PSYCH: Normal mood and affect. Course Vital Signs Vital signs: Vital Signs Temperature 98.9 F 01/14/24 07:48 Pulse Rate 98 01/14/24 07:48 Respiratory Rate 25 H 01/14/24 07:48 Pulse Oximetry 100 01/14/24 07:48 Oxygen Delivery Room Air 01/14/24 07:48 Temperat
[2024-01-14 08:06] VITALS: BP 143/89; PULSE 88; RESP 15; O2SAT 100
[2024-01-14 08:08] LABS: Basophils Percent Auto 0.8 % (0.2-1.2); Eosinophils Absolute Auto 0.2 K/mm3 (0-0.3); Eosinophils Percent Auto 4.7 % (0-4.4); Hematocrit 40.9 % (37.0-47.0); Hemoglobin 13.3 g/dL (12.0-15.0); Immature Granulocyte Absolute 0.01 K/mm3 (0.00-0.031); Immature Granulocyte Percent A 0.2 % (0-0.5); Lymphocytes Absolute Auto 1.23 K/mm3 (0.9-3.2); Lymphocytes Percent Auto 24.9 % (18.3-44.2); Mean Corpuscular HGB Conc 32.5 g/dl (32-36); Mean Corpuscular Volume 95.3 fl (80-100); Mean Platelet Volume 10.3 fl (7.4-10.4); Monocytes Absolute Auto 0.5 K/mm3 (0.1-0.6); Monocytes Percent Auto 10.9 % (2.6-8.5); Neutrophils Absolute Auto 2.9 K/mm3 (1.3-6.7); Neutrophils Percent Auto 58.5 % (45.5-73.1); Platelet Count Result 268 k/mm3 (150-375); Red Blood Count 4.29 M/mm3 (4.2-5.4); Red Cell Distribution Width 12.5 % (11.5-14.5); White Blood Count 4.9 K/mm3 (4.5-10.0)
[2024-01-14 08:18] LABS: Alanine Aminotransferase 14 U/L (6-35); Albumin Level 4.8 g/dL (3.5-5.1); Alkaline Phosphatase 57 U/L (38-126); Anion Gap 7 mmol/L (4-12); Aspartate Amino Transferase 23 U/L (14-36); Bilirubin,Total 0.7 mg/dL (0.2-1.3); Blood Urea Nitrogen 9 mg/dL (7-17); Calcium 9.6 mg/dL (8.4-10.2); Carbon Dioxide 26 mmol/L (22-30); Chloride 105 mmol/L (98-107); Estimated CRCL calculation 88 ml/min; Estimated Glomerular Filt Rate > 60; Glucose 93 mg/dL (65-110); Lipase 85 U/L (23-300); Potassium 3.7 mmol/L (3.4-5.0); Sodium 138 mmol/L (137-145)
[2024-01-14 08:28] LABS: Partial Thromboplastin Time 28.3 Seconds (22.3-36.8); Prothrombin Time 13.7 Seconds (11.1-14.7)
[2024-01-14 08:30] LABS: Troponin I < 0.012 ng/mL (0.000-0.034)
[2024-01-14] MEDS: ACETAMINOPHEN 500 MG TABLET 1000 MG PO (08:33)
[2024-01-14 08:34] LABS: Appearance Urine Cloudy (Clear); Bacteria Urine 3+ /hpf; Bilirubin Urine Negative (Negative); Blood Urine Negative (Negative); Color Urine Yellow (Yellow); Glucose Urine UA Negative (Negative); Ketones Urine Negative (Negative); Leukocyte Esterase Ur Negative LEU/UL (Negative); Nitrate Urine Negative (Negative); Non Pathogenic Casts 0-2; Protein Urine Negative (Negative); RBC Urine 0-2 /hpf (0-2); Specific Grav Ur 1.015 (1.001-1.035); Squamous Epithelial Cell Urine Moderate /hpf (Few); Urobilinogen Urine 0.2 mg/dL (<2.0); WBC Urine 0-5 /hpf (0-3); pH Urine 7.5 (5.0-9.0)
[2024-01-14 08:43] LABS: Add Urine Microscopic? YES
[2024-01-14 09:03] LABS: Influenza A QL RT-PCR Negative (Negative); Influenza B QL RT-PCR Negative (Negative); RSV RNA, RT-PCR Negative (Negative); SARS-CoV-2 RNA PCR Negative (Negative)
[2024-01-14] MEDS: PROCHLORPERAZINE EDISYLATE 10 MG/2 ML VIAL IV PUSH (09:23)
[2024-01-14] MEDS: diphenhydrAMINE HCl INJ 50 MG/ML VIAL 25 MG IV PUSH (09:24)
[2024-01-14] MEDS: KETOROLAC 15 MG/ML VIAL (*BKC) IV PUSH (09:24)
[2024-01-14 09:55] VITALS: BP 136/88; PULSE 81; RESP 17; O2SAT 100
--- NOTE | 2024-01-14 11:09 | ECG_ITS ---
SEE SCANNED COPY FOR CONFIRMED REPORT. MTDD
[2024-01-14 11:10] VITALS: BP 113/50; PULSE 76; RESP 14; O2SAT 100
[2024-01-14 11:39] LABS: Troponin I < 0.012 ng/mL (0.000-0.034)
== END 2024-01-14 12:01 | disposition home or self-care (01) ==
PROVIDERS: Emergency Provider Student in an Organized Health Care Education/Training Program; PCP Internal Medicine
DX: R51.9 Headache, unspecified (principal); R07.9 Chest pain, unspecified; Z20.822 Contact with and (suspected) exposure to COVID-19; I10 Essential (primary) hypertension
CPT/HCPCS: 36415; 71046; 80053; 81001; 83690; 84484; 85025; 85610; 85730; 87637; 93005; 96374; 96375; 99284; A9270; J0780; J1200; J1885

== ENCOUNTER 2024-03-19 19:51 | Emergency (ER) | payer OTHER, SELFPAY ==
[2024-03-19] VITALS (12 sets, daily range): BP systolic 112–137; BP diastolic 63–74; PULSE 84–111; RESP 12–19; TEMP 36.8; O2SAT 98–100
--- NOTE | ~2024-03-19 | CT_ITS ---
Clinical Indication: Chest pain CT Scan of the Chest with Contrast: Technique: Contiguous sections were acquired throughout the chest after intravenous administration of 100 cc of Omnipaque 350. Dose reduction technique was used on this scan by utilizing automated expos ure control and iterative reconstruction technique. The dose-length product (DLP) was 143.03 mGy-cm. Findings: There is no evidence of any significant mediastinal, hilar or axillary lymphadenopathy. There is no f illing defect in the pulmonary arterial tree to suggest pulmonary embolus. There is no evidence of ao rtic dissection or aneurysm. There is no evidence of pleural or pericardial effusion. The lungs are clear. No pulmonary nodules or infiltrates are noted. Images through the upper abdomen reveal no abnormalities. Impression: No evidence of pulmonary embolus, aortic dissection, or aortic aneurysm. Clear lungs. Reviewed, dictated and finalized at [facility]. Impression: No evidence of pulmonary embolus, aortic dissection, or aortic aneurysm. Clear lungs.
--- NOTE | ~2024-03-19 | XR_ITS ---
XR chest 2V Ordering provider: Bassem Díaz DO History: 38 years Female with . chest pain . Comparison: January 14, 2024 FINDINGS: MEDIASTINUM: The cardiac silhouette is not enlarged. LUNGS: No infiltrates, effusions or pneumothorax. OTHER: No free air under the diaphragm. IMPRESSION: No acute cardiopulmonary pathology. Reviewed, dictated and finalized at location A.
--- NOTE | 2024-03-19 19:59 | ECG_ITS ---
Test Date: 2024-03-19 20:06:45 Measurements Intervals [place] Rate: 97 P: 58 [place]: 160 QRS: 51 QRSD: 86 T: 49 QT: 332 QTc: 422 Interpretive Statements SINUS RHYTHM BASELINE ARTIFACT- III, AVL, V1-V2 NORMAL ECG No previous ECG available for comparison Electronically Signed On 03-20-2024 06:10:54 CDT by Bernabe Sue D.O.
[2024-03-19 20:37] LABS: Basophils Percent Auto 0.6 % (0.2-1.2); Eosinophils Absolute Auto 0.2 K/mm3 (0-0.3); Eosinophils Percent Auto 2.7 % (0-4.4); Hematocrit 38.5 % (37.0-47.0); Hemoglobin 13.2 g/dL (12.0-15.0); Immature Granulocyte Absolute 0.01 K/mm3 (0.00-0.031); Immature Granulocyte Percent A 0.2 % (0-0.5); Lymphocytes Absolute Auto 1.83 K/mm3 (0.9-3.2); Lymphocytes Percent Auto 27.5 % (18.3-44.2); Mean Corpuscular HGB Conc 34.3 g/dl (32-36); Mean Corpuscular Hemoglobin 31.7 pg (26-34); Mean Corpuscular Volume 92.3 fl (80-100); Mean Platelet Volume 9.9 fl (7.4-10.4); Monocytes Absolute Auto 0.7 K/mm3 (0.1-0.6); Monocytes Percent Auto 10.7 % (2.6-8.5); Neutrophils Absolute Auto 3.9 K/mm3 (1.3-6.7); Neutrophils Percent Auto 58.3 % (45.5-73.1); Platelet Count Result 252 k/mm3 (150-375); Red Blood Count 4.17 M/mm3 (4.2-5.4); Red Cell Distribution Width 12.2 % (11.5-14.5); White Blood Count 6.7 K/mm3 (4.5-10.0)
[2024-03-19 20:47] LABS: Prothrombin Time 13.5 Seconds (11.1-14.7)
[2024-03-19 20:48] LABS: Alanine Aminotransferase 14 U/L (6-35); Albumin Level 4.9 g/dL (3.5-5.1); Alkaline Phosphatase 54 U/L (38-126); Anion Gap 8 mmol/L (4-12); Aspartate Amino Transferase 23 U/L (14-36); Bilirubin,Total 0.4 mg/dL (0.2-1.3); Blood Urea Nitrogen 15 mg/dL (7-17); Calcium 9.6 mg/dL (8.4-10.2); Carbon Dioxide 29 mmol/L (22-30); Chloride 103 mmol/L (98-107); Estimated CRCL calculation 81 ml/min; Estimated Glomerular Filt Rate > 60; Glucose 93 mg/dL (65-110); Lipase 125 U/L (23-300); Partial Thromboplastin Time 27.6 Seconds (22.3-36.8); Potassium 3.4 mmol/L (3.4-5.0); Sodium 140 mmol/L (137-145)
[2024-03-19 20:59] LABS: Troponin I < 0.012 ng/mL (0.000-0.034)
--- NOTE | 2024-03-19 21:13 | ED.ARRPALP ---
HPI - Arrhythmia/Palpitations General Chief Complaint: Arrhythmia/Palpitations Stated Complaint: palpations Time Seen by Provider: 03/19/24 20:42 Source: patient Mode of arrival: EMS Limitations: no limitations History of Present Illness HPI narrative: Patient is a 38-year-old female who presents the ED via EMS with report of a chest pain and palpitations. Patient reports she was sitting down watching TV around 7:00 p.m. when she developed midsternal chest pain, radiating through to her back. She also reported having palpitations at that time, noting her heart rate on her Apple watch was up to 140s beats per minute. She then prompted here for further evaluation. Patient does report having mild persistent pain currently. HR in the 80-90s upon my evaluation. patient reports she did feel short of breath and mildly lightheaded with the pain. Patient denies any recent cough or cold symptoms. Denies fevers. Denies hx of blood clots. Denies BLE pain or swelling. Per EMS report, patient reported she was watching an intense scary movie at the time the palpations occurred. Patient reports having similar symptoms in December this year. Has since seen Cardiology, diagnosed with mitral valve regurgitation. Is undergoing annual evaluations for this for monitoring. Related Data Home Medications Medication Instructions Recorded Confirmed lisinopril 20 1 tablet PO 12/05/23 12/05/23 mg-hydrochlorothiazide 12.5 mg tablet Allergies Allergy/AdvReac Type Severity Reaction Status Date / Time morphine Allergy Mild Unknown Verified 01/14/24 07:56 Review of Systems Review of Systems: CONSTITUTIONAL: Denies fever, chills, or sweats. CARDIOVASCULAR: see HPI. RESPIRATORY: See HPI. GASTROINTESTINAL: Denies abdominal pain, nausea, vomiting MUSCULOSKELETAL: See HPI All systems reviewed & are unremarkable except as noted in HPI and below PMFSH Past Medical History Medical History HTN (hypertension) Migraine Sciatic nerve disease Screening mammogram, encounter for Surgical History Surgical History History of hysteroscopy (03/09/21) hscope removal of IUD device/ Endometrial Ablation/ D&C/ Laparoscopic bilateral salpingectomy No pertinent past surgical history Family History Family History Other Breast cancer maternal great grandmother/ maternal aunt / Social History Social History Smoking status: Never smoker Alcohol intake: current Drinks per week: 3 Substance use: current Substance use type: marijuana Other substance usage details: 1-2 x in 6 months Lack of Transportation: No Lack of Food: Never True Current Housing: I Have Housing Concerned About Future Housing: No Difficulty Paying Gas/Electric Bills: No Difficulty Paying for Meds: No Currently Unemployed: No Education: Master's Degree or Higher Difficulty w/ Childcare or Family Care: No Living arrangements: other Additional living arrangements comments: Occupation/Education: occupation 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 HEAD: Normocephalic, atraumatic. RESPIRATORY: Airway patent, respirations nonlabored. Clear to auscultation bilaterally, no rales, rhonchi, wheezing. CARDIOVASCULAR: Regular rate and rhythm without murmurs, rubs, or gallops. ABDOMINAL: Soft, nontender, nondistended. Normoactive BS. MUSCULOSKELETAL: Moves all extremities. No gross deformities. No lower extremity swelling. No calf tenderness.
[2024-03-19 21:28] LABS: Magnesium 2.1 mg/dL (1.6-2.3)
[2024-03-19 21:49] LABS: D Dimer 0.93 ug/mL (<0.48)
[2024-03-19] MEDS: ACETAMINOPHEN 500 MG TABLET 1000 MG PO (21:55)
--- NOTE | 2024-03-19 22:28 | PC.NURSE ---
patient states they had tubes tied and uterine ablation
[2024-03-20 00:18] LABS: Troponin I < 0.012 ng/mL (0.000-0.034)
[2024-03-20 02:04] VITALS: BP 120/76; PULSE 86; RESP 16; O2SAT 98
--- NOTE | 2024-03-20 10:35 | ECG_ITS ---
Test Date: 2024-03-20 00:27:23 Measurements Intervals [place] Rate: 76 P: 64 OR: 158 QRS: 40 QRSD: 80 T: 36 QT: 363 QTc: 409 Interpretive Statements SINUS RHYTHM NORMAL ECG Compared to ECG 03/19/2024 20:06:45 No significant changes Electronically Signed On 03-20-2024 10:41:38 CDT by Bernabe Sue D.O.
== END 2024-03-20 02:06 | disposition home or self-care (01) ==
PROVIDERS: Student in an Organized Health Care Education/Training Program; Emergency Provider Physician Assistant; PCP Internal Medicine
DX: R07.89 Other chest pain (principal); R00.0 Tachycardia, unspecified; R00.2 Palpitations; I10 Essential (primary) hypertension
CPT/HCPCS: 36415; 71046; 71275; 80053; 83690; 83735; 84443; 84484; 85025; 85380; 85610; 85730; 93005; 99284; A9270; Q9967

== ENCOUNTER 2024-04-14 23:19 | Emergency (ER) | payer OTHER, SELFPAY ==
--- NOTE | ~2024-04-14 | XR_ITS ---
Portable chest x-ray Comparison: 03/19/2024 Clinical History: Chest pain, tachycardia Findings: Lungs are clear, without focal consolidation or pleural effusion. Cardiomediastinal silho uette is stable. Bones and soft tissues are unremarkable. Impression: Normal chest. Reviewed, dictated and finalized at location . Impression: Normal chest.
--- NOTE | ~2024-04-14 | CT_ITS ---
Clinical Indication: Chest pain, dyspnea CT Scan of the Chest with Contrast: Technique: Contiguous sections were acquired throughout the chest after intravenous administration of 100 cc of Omnipaque 350. Dose reduction technique was used on this scan by utilizing automated expos ure control and iterative reconstruction technique. The dose-length product (DLP) was 191.50 mGy-cm. COMPARISON: 03/19/2024 Findings: There is no evidence of any significant mediastinal, hilar or axillary lymphadenopathy. There is no f illing defect in the pulmonary arterial tree to suggest pulmonary embolus. There is no evidence of ao rtic dissection or aneurysm. There is no evidence of pleural or pericardial effusion. The lungs are clear. No pulmonary nodules or infiltrates are noted. Images through the upper abdomen reveal no abnormalities. Impression: No evidence of pulmonary embolus, aortic dissection, or aortic aneurysm. Clear lungs. Reviewed, dictated and finalized at [facility]. Impression: No evidence of pulmonary embolus, aortic dissection, or aortic aneurysm. Clear lungs.
[2024-04-14 23:17] VITALS: BP 141/63; PULSE 84; RESP 15; TEMP 36.7; O2SAT 100
--- NOTE | 2024-04-14 23:23 | ECG_ITS ---
Test Date: 2024-04-14 23:25:34 Measurements Intervals [place] Rate: 83 P: 58 [place]: 157 QRS: 37 QRSD: 81 T: 30 QT: 346 QTc: 408 Interpretive Statements SINUS RHYTHM WITH SINUS ARRHYTHMIA BASELINE ARTIFACT- I, III, AVR, AVL, AVF NORMAL ECG Compared to ECG 03/20/2024 00:27:23 No significant changes Electronically Signed On 04-15-2024 06:28:39 CDT by Bernabe Sue D.O.
[2024-04-14 23:41] VITALS: BP 113/71; PULSE 87; RESP 12; O2SAT 100
[2024-04-14 23:45] VITALS: PULSE 86; RESP 12; O2SAT 98
[2024-04-14 23:52] LABS: Basophils Percent Auto 0.5 % (0.2-1.2); Eosinophils Absolute Auto 0.1 K/mm3 (0-0.3); Eosinophils Percent Auto 1.3 % (0-4.4); Hematocrit 37.4 % (37.0-47.0); Hemoglobin 12.5 g/dL (12.0-15.0); Immature Granulocyte Absolute 0.02 K/mm3 (0.00-0.031); Immature Granulocyte Percent A 0.3 % (0-0.5); Lymphocytes Absolute Auto 1.39 K/mm3 (0.9-3.2); Lymphocytes Percent Auto 21.8 % (18.3-44.2); Mean Corpuscular HGB Conc 33.4 g/dl (32-36); Mean Corpuscular Hemoglobin 31.6 pg (26-34); Mean Corpuscular Volume 94.7 fl (80-100); Mean Platelet Volume 10.3 fl (7.4-10.4); Monocytes Absolute Auto 0.6 K/mm3 (0.1-0.6); Monocytes Percent Auto 9.2 % (2.6-8.5); Neutrophils Absolute Auto 4.3 K/mm3 (1.3-6.7); Neutrophils Percent Auto 66.9 % (45.5-73.1); Platelet Count Result 238 k/mm3 (150-375); Red Blood Count 3.95 M/mm3 (4.2-5.4); Red Cell Distribution Width 11.9 % (11.5-14.5); White Blood Count 6.4 K/mm3 (4.5-10.0)
--- NOTE | 2024-04-15 | ED.CHESTPAIN ---
HPI - Chest Pain General Chief Complaint: Chest Pain Stated Complaint: CHEST PRESSURE RADIATING TO HER BACK Source: patient and family Limitations: no limitations History of Present Illness HPI narrative: Patient is a 38-year-old female presents to the emergency department complaining of chest pain, rapid heart rate, shortness of breath. Patient notes around 6:30 p.m. she was at swim lessons and watching and not participating when she started to notice that her heart rate was elevated on her watch into the 120s and she develops chest discomfort and dyspnea. Patient states that she took 4 baby aspirins in addition to some Motrin without any relief. Patient states that the chest discomfort has been persistent since addition to some mild shortness of breath still persisting. Patient's her heart rate went down and then came back up and went as high as the 150s. Patient describes the chest discomfort is the middle of her chest, also radiates toward her back and between her shoulder blades, feels like a squeezing sensation, has not noticed anything making it better or worse, states overall constant, denies any history of this in the past. Patient denies any recent injuries, recent illness, history of blood clots, numbness, weakness, cough, fever, sore throat, nasal congestion, melena, hematochezia, urinary discomfort, abdominal pain, nausea, vomiting, diarrhea. Patient admits to history of elevated heart rate in the past for which he is seeing Cardiology on the [facility] and was recently started on metoprolol 25 mg extended release which she has been taking for the past 2 weeks, that she has not had a elevated heart rate in a couple months and in the past she did wear a event monitor and did have a couple events, does not know what it was the events were, notes that she had an echocardiogram that showed a mitral valve regurgitation. Patient admits to history of high blood pressure, notes that she had a high LDL on her recent labs done. Patient denies diabetes, smoking. Patient was given nitroglycerin by EMS which she states did not give her any relief. Patient does admit to a recent long-distance travel. Related Data Home Medications Medication Instructions Recorded Confirmed lisinopril 20 1 tablet PO 12/05/23 12/05/23 mg-hydrochlorothiazide 12.5 mg tablet Allergies Allergy/AdvReac Type Severity Reaction Status Date / Time morphine Allergy Mild Unknown Verified 01/14/24 07:56 Review of Systems Review of Systems: A 10 system review of systems was completed on the patient and is negative except for what is stated in the HPI. Nursing and ancillary documentation was reviewed. [facility] Past Medical History Medical History HTN (hypertension) Migraine Sciatic nerve disease Screening mammogram, encounter for Surgical History Surgical History History of hysteroscopy (03/09/21) hscope removal of IUD device/ Endometrial Ablation/ D&C/ Laparoscopic bilateral salpingectomy No pertinent past surgical history Family History Family History Other Breast cancer maternal great grandmother/ maternal aunt / Social History Social History Smoking status: Never smoker Alcohol intake: current Drinks per week: 3 Substance use: current Substance use type: marijuana Other substance usage details: 1-2 x in 6 months Lack of Transportation: No Lack of Food: Never True Current Housing: I Have Housing Concerned About Future Housing: No Difficulty Paying Gas/Electric Bills: No Difficulty Paying for Meds: No Currently Unemployed: No Education: Master's Degree or Higher Difficulty w/ Childcare or Family Care: No Living arrangements: other Additional living arrangements co
[2024-04-15 00:09] LABS: INR 1.1; Partial Thromboplastin Time 28.7 Seconds (22.3-36.8); Prothrombin Time 14.2 Seconds (11.1-14.7)
[2024-04-15 00:12] VITALS: PULSE 81; RESP 14; O2SAT 100
[2024-04-15] MEDS: FAMOTIDINE 20 MG/2 ML VIAL IV PUSH (00:19)
[2024-04-15] MEDS: ACETAMINOPHEN 500 MG TABLET 1000 MG PO (00:19)
[2024-04-15 00:31] VITALS: O2SAT 99
[2024-04-15 00:32] LABS: D Dimer 0.65 ug/mL (<0.48)
[2024-04-15 00:33] VITALS: PULSE 87
[2024-04-15 00:38] LABS: SPREG INTERNAL CONTROL Positive; Serum Qual hCG Negative
[2024-04-15 01:17] VITALS: BP 117/62; PULSE 74; RESP 14; O2SAT 99
[2024-04-15 01:18] LABS: Alanine Aminotransferase 13 U/L (6-35); Albumin Level 4.1 g/dL (3.5-5.1); Alkaline Phosphatase 54 U/L (38-126); Anion Gap 10 mmol/L (4-12); Aspartate Amino Transferase 23 U/L (14-36); Bilirubin,Total 0.3 mg/dL (0.2-1.3); Blood Urea Nitrogen 9 mg/dL (7-17); Carbon Dioxide 24 mmol/L (22-30); Chloride 103 mmol/L (98-107); Estimated CRCL calculation 88 ml/min; Estimated Glomerular Filt Rate > 60; Glucose 112 mg/dL (65-110); Lipase 97 U/L (23-300); Potassium 3.6 mmol/L (3.4-5.0); Sodium 137 mmol/L (137-145)
[2024-04-15 01:30] LABS: Troponin I < 0.012 ng/mL (0.000-0.034)
== END 2024-04-15 02:46 | disposition home or self-care (01) ==
PROVIDERS: Emergency Provider Student in an Organized Health Care Education/Training Program; PCP Internal Medicine
DX: R06.02 Shortness of breath (principal); R07.9 Chest pain, unspecified; R00.2 Palpitations; I10 Essential (primary) hypertension
CPT/HCPCS: 36415; 71045; 71275; 80053; 83690; 83735; 84443; 84484; 84703; 85025; 85380; 85610; 85730; 93005; 96374; 99284; A9270; Q9967

== ENCOUNTER 2024-05-21 07:16 | Outpatient (CLI) | payer OTHER, SELFPAY ==
--- NOTE | ~2024-05-21 | MM_ITS ---
EXAMINATION: MM screening zoya BI w camilla HISTORY: Screening TECHNIQUE: Craniocaudal and mediolateral oblique 3-D tomosynthesis images were obtained and synthetic 2-D images were generated. CAD analysis was submitted and interpreted. COMPARISON: 05/15/2023 BREAST PARENCHYMAL COMPOSITION: Dense: The breasts are extremely dense, which lowers the sensitivity of mammography. FINDINGS: There is no evidence of suspicious mass, calcification, or architectural distortion to sugg est malignancy in either breast. There has been no suspicious interval change. IMPRESSION: 1. No mammographic evidence of malignancy. 2. Recommend routine screening mammography in one year. BI-RADS Category 1: Negative Reviewed, dictated and finalized at location B.
== END 2024-05-21 07:17 | disposition home or self-care (01) ==
PROVIDERS: PCP Internal Medicine; Visit Provider Obstetrics & Gynecology
DX: Z12.31 Encounter for screening mammogram for malignant neoplasm of breast (principal)
CPT/HCPCS: 77063; 77067

== ENCOUNTER 2024-05-22 10:24 | Outpatient (CLI) | payer OTHER, SELFPAY ==
--- NOTE | ~2024-05-22 | CT_ITS ---
EXAMINATION: CT brain wo con DATE: 05/22/2024 10:58 INDICATION: New onset headaches TECHNIQUE: Computed tomography (CT) of the head was performed without intravenous contrast. Sagittal and coronal reconstructions were performed. The mA was adjusted according to patient size. Iterative reconstruction technique was employed. The dose-length product was 529.67 mGy-cm. COMPARISON: None FINDINGS: No acute intracranial hemorrhage, acute infarction or abnormal extra axial fluid collection. Ventricl es are normal and symmetric. No mass/mass effect. The orbits, paranasal sinuses and mastoid air cells are normal. IMPRESSION: 1. Normal head CT. Reviewed, dictated and finalized at location A. IMPRESSION: 1. Normal head CT.
== END 2024-05-22 10:25 | disposition home or self-care (01) ==
PROVIDERS: PCP Internal Medicine; Visit Provider Internal Medicine
DX: R51.9 Headache, unspecified (principal)
CPT/HCPCS: 70450

== ENCOUNTER 2024-10-06 09:18 | Outpatient (CLI) | payer OTHER, SELFPAY ==
--- NOTE | ~2024-10-06 | MMUS_ITS ---
EXAMINATION: MM diagnostic zoya LT w camilla, US breast LT complete HISTORY: Palpable left breast abnormality. TECHNIQUE: Additional 3-D tomosynthesis images of the left breast were performed and synthetic 2-D im ages were generated. CAD analysis was submitted and interpreted. High resolution complete left breast ultrasound was performed. COMPARISON: Comparison to multiple prior studies sequentially, with oldest reviewed study dated 05/15. BREAST PARENCHYMAL COMPOSITION: Dense: The breasts are extremely dense, which lowers the sensitivity of mammography. FINDINGS: MAMMOGRAPHIC FINDINGS: The left breast is stable without interval development of mass, architectural distortion or suspiciou s calcifications. ULTRASOUND: Limited left breast ultrasound: There are mildly dilated ducts at 1:00. At 11:00, 4 cm from the nippl e there is a slightly irregular oval hypoechoic mass with heterogeneous internal echotexture measurin g 7 x 6 x 5 mm. No internal vascularity or significant posterior features. At 9:00 in the subareolar location there is an oval circumscribed parallel oriented hypoechoic mass measuring 1.7 x 1.2 x 0.5 c m. Internal echotexture is heterogeneous IMPRESSION: 1. Indeterminate left breast masses located at 11:00, 4 cm from the nipple measuring 7 mm and at 9:00 in the subareolar location measuring 1.7 cm. 2. Ultrasound-guided left breast biopsies recommended. BI-RADS category 4, suspicious findings. Reviewed, dictated and finalized at location A. RPRISE SYSTEMS ENGINEER IMPRESSION: 1. Indeterminate left breast masses located at 11:00, 4 cm from the nipple gustabo uring 7 mm and at 9:00 in the subareolar location measuring 1.7 cm. 2. Ultrasound-guided left breast biopsies recommended. BI-RADS category 4, suspicious findings.
== END 2024-10-06 09:19 | disposition home or self-care (01) ==
PROVIDERS: PCP Internal Medicine; Visit Provider Obstetrics & Gynecology
DX: N63.20 Unspecified lump in the left breast, unspecified quadrant (principal); R92.8 Other abnormal and inconclusive findings on diagnostic imaging of breast
CPT/HCPCS: 76641; 77061; 77065; G0279

== ENCOUNTER 2025-06-11 07:29 | Outpatient (CLI) | payer OTHER, SELFPAY ==
--- NOTE | ~2025-06-11 | MM_ITS ---
EXAMINATION: MM screening [facility] BI w camilla HISTORY: Screening TECHNIQUE: Craniocaudal and mediolateral oblique 3-D tomosynthesis images were obtained and synthetic 2-D images were generated. CAD analysis was submitted and interpreted. COMPARISON: Comparison to multiple prior studies sequentially, with oldest reviewed study dated , 05/15/2023 BREAST PARENCHYMAL COMPOSITION: The breasts are heterogeneously dense, which may obscure small masses. FINDINGS: There is no evidence of suspicious mass, calcification, or architectural distortion to suggest malignancy in either breast. IMPRESSION: 1. No mammographic evidence of malignancy. 2. Recommend routine screening mammography in one year. BI-RADS Category 1: Negative Reviewed, dictated and finalized at location C.
--- OUTSIDE RECORDS SUMMARY | 2025-06-11 07:31 | XMS_ITS | Clinical Summary ---
Author Organization [facility] Address [address] [place] [address] Care Team Providers Care Head Athletic Trainer Name Role Phone Brian Hoffman MD Primary Care Provider [phone] Source Comments [facility],non-owned Affiliates and Associated Physician Practices is amultiple site organization consisting of ambulatory clinics and hospital sitesin [place], [place], [place] and [place]. This disclosure is being madepursuant to the Care Everywhere program and may not contain all information available regarding this patient. Last updated 18.[facility] Allergies No known active allergies Medications * Be aware that medications may not be up to date on this document. Alwaysverify current medications with the patient. [id number] ( VITAMINS PO) Active Family History Medical History Relation Name Comments Asthma Brother Hypertension Father Thyroid Disease Maternal Grandmother Hypertension Mother Relation Name Status Comments Brother Father Maternal Grandmother Mother Social History Tobacco Use Types Packs/Day Years Used Date Smoking Tobacco: Never Smokeless Tobacco: Never Comments No Sex and Gender Information Value Date Recorded Sex Assigned at Not on file Legal Sex Female 9:46 AM CDT Gender Identity Not on file Sexual Orientation Not on file Last Filed Vital Signs Vital Sign Reading Time Taken Comments Blood Pressure 128/86 05/28/2017 9:20 AM CDT Pulse 77 05/28/2017 9:20 AM CDT Temperature 37.1 C (98.8 F) 05/28/2017 9:20 AM CDT Respiratory Rate - - Oxygen Saturation 99% 05/28/2017 9:20 AM CDT Inhaled Oxygen Concentration - - Weight 67.1 kg (148 lb) 05/28/2017 9:20 AM CDT Height 160 cm (5' 3) 05/28/2017 9:20 AM CDT Body Mass Index 26.22 05/28/2017 9:20 AM CDT Plan of Treatment Health Maintenance Due Date Last Done Comments HIV SCREENING 2000 HEPATITIS C SCREENING 12/18/2003 DTAP/TDAP/TD VACCINES (1 - Tdap) 2004 HEPATITIS B VACCINE (1 of 3 - 19+ 3-dose series) 2004 PAP SMEAR 2006 HPV VACCINE (1 - 3-dose SCDM series) 2012 DEPRESSION SCREENING 09/16/2024 COVID-19 VACCINE (1 - 2023-2 5 season) 2025 INFLUENZA VACCINE (#1) 2025 ZOSTER VACCINE (1 of 2) 12/23/2035 HIB VACCINE Aged Out No longer eligi ble based on patient's age to complete this topic MENINGOCOCCAL (Group B) VACC INE SHARED DECISION-MAKING Aged Out No longer eligibl e based on patient's age to complete this topic MENINGOCOCCAL GROUPS A/C/Y/W VACCINE Aged Out No longer eligible b ased on patient's age to complete this topic PNEUMOCOCCAL VACCINE Aged Out No long er eligible based on patient's age to complete this topic Medical Devices Implanted Type Area Plant Accountant Device Identifier Shelf Expiration Date Model / Serial / Lot [employer] Ultracor Ultrasound Enhanced Ribbon Breast Tissue Marker Implanted:Qty: 1 on 11/03/2024 by Rosangela Nation MD at [facility] Left: Breast [id number] 05/17/2027 [id number] / / [employer] Ultracor Ultrasound Enhanced Heart Breast Tissue Marker Implanted:Qty: 1 on 11/03/2024 by Rosangela Nation MD at [facility] Left: Breast 07/17/2027 [id number] / / [id number] Insurance [facility] Care Teams Head Athletic Trainer Relationship Specialty Start Date End Date Brian Hoffman MD [facility] [place] [address] PCP - General Family Medicine 05/28/17
--- OUTSIDE RECORDS SUMMARY | 2025-06-11 07:31 | XMS_ITS | Clinical Summary ---
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 1 Active ibuprofen (ADVIL,MOTRIN) 800 mg tablet Take 1 tablet (800 mg total) by mouth every 6 (six) hours as needed Active lisinopril-hydroCH LOROthiazide (ZESTORETIC) 20-12.5 mg per tablet Take 1 tablet by mouth daily 1 Active rizatriptan RECREATION COORDINATOR (MAXALT-RECREATION COORDINATOR) 10 mg disintegrating tablet Take 1 tablet (10 mg total) by mouth once as needed for migraine 3 Active Active Problems Problem Noted Date Diagnosed Date Atypical squamous cells of u ndetermined significance (ASCUS) on Papanicolaou smear of cervix 08/02/2023 Human papilloma virus infection 08/02/2023 Irregular periods 08/02/2023 Low grade squamous intraepit helial lesion (LGSIL) on cervicovaginal cytologic smear 08/02/2023 Pain of breast 08/02/2023 Right lower quadrant pain 08/02/2023 Social History Tobacco Use Types Packs/Day Years Used Date Smoking Tobacco: Never Smokeless Tobacco: Never Tobacco Cessation:Counseling Given: Yes Personal Safety Answer Date Recorded Getting School Help Needed Not on file 10/23 Comments No Sex and Gender Information Value Date Recorded Sex Assigned at Not on file 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 Gender Identity Not on file Sexual Orientation Not on file Obstetrics History Last Filed Vital Signs Vital Sign Reading Time Taken Comments Blood Pressure 110/72 08/02/2023 10:19 AM GIS ENGINEER Pulse 82 08/02/2023 10:19 AM GIS ENGINEER Temperature 36.7 C (98.1 F) 08/02/2023 10:19 AM GIS ENGINEER Respiratory Rate 17 08/02/2023 10:19 AM GIS ENGINEER Oxygen Saturation 99% 08/02/2023 10:19 AM GIS ENGINEER Inhaled Oxygen Concentration - - Weight 68 kg (150 lb) 08/02/2023 10:19 AM GIS ENGINEER Height - - Body Mass Index - - Plan of Treatment Health Maintenance Due Date Last Done Comments Cervical Cancer Screening 1985 Depression Screening 1985 Hepatitis C Screening 1985 Varicella Vaccines (1 of 2 - 13+ 2-dose series) 1998 Hepatitis B Screening 12/23/2003 Regular Well Visit/Exam 18-64 12/23/2003 HPV Vaccines (1 - 3-dose SCDM series) 2012 Covid-19 Vaccine ( season) 2025 07/31/2021, 12/03/2020, 11/05/2020 Influenza Vaccine (#1) 2025 , 06/04/2019, 08/09/2017, Additional history exists DTaP/Tdap/Td Vaccine (2 - Td or Tdap) 04/26/2027 04/26/2017 Pneumococcal vaccine <65 Aged Out No longer eligible based on patient's age to complete this topic Insurance [facility] Care Teams Splicer Apprentice Relationship Specialty Start Date End Date Lolis Canada MD PCP - General Internal Medicine 02/02/22
== END 2025-06-11 07:30 | disposition home or self-care (01) ==
LOC: CHSIMG 07:29
PROVIDERS: PCP Family Medicine; Visit Provider Obstetrics & Gynecology
DX: Z12.31 Encounter for screening mammogram for malignant neoplasm of breast (principal)
CPT/HCPCS: 77063; 77067